=== PATIENT | female | born 1950 | race Caucasian/White ===

== ENCOUNTER 2018-01-29 14:42 | Emergency (ER) | payer MEDICARE, MEDICAID ==
[~2018-01-29] VITALS: Ht 170.2 cm; Wt 80.0 kg
[~2018-01-29 14:42] MED LIST: DIVA500T7 PO; ESOM40CA PO; FLUO20CA22 PO; FURO-150 PO; POTA20TA19 PO; ROSU5TAB PO
[2018-01-29 14:48] VITALS: BP 142/86
[2018-01-29 15:20] LABS: CLARITY,URINE CLEAR (Clear); COLOR,URINE YELLOW (Yellow); GLUCOSE, URINE NEGATIVE (Neg); KETONES,URINE NEGATIVE (Neg); LEUKOCYTE ESTERASE ,URINE NEGATIVE (Neg); NITRITES, URINE NEGATIVE (Neg); OCCULT BLOOD,URINE NEGATIVE (Neg); PH,URINE 6.5 (4.8-8.0); PROTEIN,URINE NEGATIVE (Neg); UROBILINOGEN,URINE 0.2 E.U/dL (0.2-1.0)
[2018-01-29 15:21] LABS: UA COLLECTION TYPE CLN CATCH MIDSTREAM
== END 2018-01-29 16:02 | disposition home or self-care (01) ==
LOC: ER 14:42
DX: R30.0 Dysuria (principal); E78.00 Pure hypercholesterolemia, unspecified; K21.9 Gastro-esophageal reflux disease without esophagitis; Z90.49 Acquired absence of other specified parts of digestive tract; Z79.899 Other long term (current) drug therapy; Z88.5 Allergy status to narcotic agent
CPT/HCPCS: 81003; 99285

== ENCOUNTER 2018-02-08 19:46 | Emergency (ER) | payer MEDICARE, MEDICAID ==
[~2018-02-08] VITALS: Ht 162.6 cm; Wt 84.0 kg
[2018-02-08 20:40] LABS: CLARITY,URINE CLEAR (Clear); COLOR,URINE YELLOW (Yellow); GLUCOSE, URINE NEGATIVE (Neg); KETONES,URINE NEGATIVE (Neg); LEUKOCYTE ESTERASE ,URINE NEGATIVE (Neg); NITRITES, URINE NEGATIVE (Neg); OCCULT BLOOD,URINE NEGATIVE (Neg); PROTEIN,URINE NEGATIVE (Neg); UROBILINOGEN,URINE 0.2 E.U/dL (0.2-1.0)
[2018-02-08 20:48] LABS: UA COLLECTION TYPE CLN CATCH MIDSTREAM
[2018-02-08 21:30] LABS: BASOPHILS % (AUTO) 0.3 % (0-1); EOSINOPHILS # (AUTO) 0.3 X10'3 (0-0.9); EOSINOPHILS % (AUTO) 4.3 % (0-6); HEMATOCRIT 39.8 % (35.0-45.0); HEMOGLOBIN 13.6 g/dl (12.0-16.0); LYMPHOCYTES # (AUTO) 1.2 X10'3 (1.1-4.8); LYMPHOCYTES % (AUTO) 17.9 % (21-51); MEAN CORPUSCULAR HEMOGLOBIN 32.5 PG (27.0-31.0); MEAN CORPUSCULAR HGB CONC 34.1 % (33.0-36.5); MEAN CORPUSCULAR VOLUME 95.3 FL (78-98); MEAN PLATELET VOLUME 10.2 FL (7.4-10.4); MONOCYTES # (AUTO) 0.4 X10'3 (0-0.9); MONOCYTES % (AUTO) 5.2 % (2-12); NEUTROPHILS % (AUTO) 72.3 % (42-75); PLATELET COUNT 92 X10'3 (140-440); RED BLOOD COUNT 4.17 X10'6 (4.20-5.60); RED CELL DISTRIBUTION WIDTH 13.6 % (11.5-14.5); WHITE BLOOD COUNT 6.9 X10'3 (4.5-11.0)
[2018-02-08 21:43] LABS: PROTHROMBIN TIME 10.5 SECONDS (9.0-12.0)
[2018-02-08 21:49] LABS: ALANINE AMINOTRANSFERASE 20 U/L (12-78); ALBUMIN 3.5 G/DL (3.4-5.0); ALBUMIN/GLOBULIN RATIO 1.1 (1.1-1.5); ALKALINE PHOSPHATASE 109 IU/L (46-116); ANION GAP 7 (8-16); ASPARTATE AMINO TRANSFERASE 11 U/L (10-37); BILIRUBIN,TOTAL 0.3 MG/DL (0.1-1.0); BLOOD UREA NITROGEN 21 MG/DL (7-18); BUN/CREATININE RATIO 20.4 (6.6-38.0); CALCIUM 10.2 MG/DL (8.5-10.1); CHLORIDE 104 MMOL/L (99-107); CREATININE 1.03 MG/DL (0.40-0.90); GLUCOSE 126 MG/DL (70-104); POTASSIUM 3.7 MMOL/L (3.5-5.1); SODIUM 141 MMOL/L (135-145); TOTAL CARBON DIOXIDE 29.7 MMOL/L (24-32); TOTAL PROTEIN 6.7 G/DL (6.4-8.2); eGFR 53 ML/MIN
[2018-02-08 22:10] VITALS: BP 106/64
== END 2018-02-08 22:19 | disposition home or self-care (01) ==
LOC: ER 19:47
DX: I77.6 Arteritis, unspecified (principal); E78.00 Pure hypercholesterolemia, unspecified; K21.9 Gastro-esophageal reflux disease without esophagitis; Z90.49 Acquired absence of other specified parts of digestive tract; Z90.710 Acquired absence of both cervix and uterus; Z88.8 Allergy status to other drugs, medicaments and biological substances; Z88.5 Allergy status to narcotic agent
CPT/HCPCS: 36415; 80053; 81003; 85025; 85610; 99284

== ENCOUNTER 2018-06-13 13:32 | Emergency (ER) | payer MEDICARE, MEDICAID ==
[~2018-06-13] VITALS: Ht 162.6 cm; Wt 81.3 kg
[~2018-06-13 13:32] MED LIST changes: +DIVA-76 PO; -DIVA500T7 PO
[2018-06-13] MEDS ORDERED: TETanus/Pertussis (Acell)/Diphther VAC/PF (Tdap-Adult) 0.5ml syringe IM ONE (14:10)
[2018-06-13] MEDS ORDERED: BUPIVAcaine/PF 2.5 mg/ml (0.25%) 30ml vial IJ ONE ×2 (14:10→16:25)
[2018-06-13] MEDS ORDERED: BUPIVAcaine/PF 2.5mg/ml (0.25%) 10ml vial IJ ONE ×3 (15:00→16:30)
[2018-06-13 15:03] LABS: BASOPHILS % (AUTO) 0.6 % (0-1); EOSINOPHILS # (AUTO) 0.2 X10'3 (0-0.9); EOSINOPHILS % (AUTO) 2.7 % (0-6); HEMATOCRIT 37.5 % (35.0-45.0); LYMPHOCYTES # (AUTO) 1.6 X10'3 (1.1-4.8); LYMPHOCYTES % (AUTO) 27.8 % (21-51); MEAN CORPUSCULAR HEMOGLOBIN 32.9 PG (27.0-31.0); MEAN CORPUSCULAR HGB CONC 34.7 % (33.0-36.5); MEAN CORPUSCULAR VOLUME 94.9 FL (78-98); MEAN PLATELET VOLUME 9.9 FL (7.4-10.4); MONOCYTES % (AUTO) 17.2 % (2-12); NEUTROPHILS % (AUTO) 51.7 % (42-75); PLATELET COUNT 95 X10'3 (140-440); RED BLOOD COUNT 3.95 X10'6 (4.20-5.60); RED CELL DISTRIBUTION WIDTH 13.1 % (11.5-14.5); WHITE BLOOD COUNT 5.7 X10'3 (4.5-11.0)
[2018-06-13 15:13] LABS: INR 1.1 INR; PARTIAL THROMBOPLASTIN TIME 26 SECONDS (22-32); PROTHROMBIN TIME 11.1 SECONDS (9.0-12.0)
[2018-06-13 15:17] LABS: LARGE PLATELETS FEW; PLATELET ESTIMATE DECREASED; TOTAL CELLS COUNTED 100
[2018-06-13 15:19] LABS: ALANINE AMINOTRANSFERASE 21 U/L (12-78); ALBUMIN 3.3 G/DL (3.4-5.0); ALBUMIN/GLOBULIN RATIO 1.2 (1.1-1.5); ALKALINE PHOSPHATASE 82 IU/L (46-116); ANION GAP 4 (8-16); ASPARTATE AMINO TRANSFERASE 21 U/L (10-37); BILIRUBIN,TOTAL 0.4 MG/DL (0.1-1.0); BLOOD UREA NITROGEN 13 MG/DL (7-18); BUN/CREATININE RATIO 12.4 (6.6-38.0); CHLORIDE 107 MMOL/L (99-107); CREATININE 1.05 MG/DL (0.40-0.90); GLUCOSE 107 MG/DL (70-104); POTASSIUM 3.9 MMOL/L (3.5-5.1); SODIUM 140 MMOL/L (135-145); TOTAL CARBON DIOXIDE 29.1 MMOL/L (24-32); TOTAL PROTEIN 6.1 G/DL (6.4-8.2); VALPROATE 70 UG/ML (50-100); eGFR 52 ML/MIN
[2018-06-13 15:21] LABS: ACETAMINOPHEN < 2.0 UG/ML (10-30)
[2018-06-13 15:53] LABS: CLARITY,URINE CLEAR (Clear); COLOR,URINE YELLOW (Yellow); GLUCOSE, URINE NEGATIVE (Neg); KETONES,URINE NEGATIVE (Neg); LEUKOCYTE ESTERASE ,URINE NEGATIVE (Neg); NITRITES, URINE NEGATIVE (Neg); OCCULT BLOOD,URINE NEGATIVE (Neg); PH,URINE 5.5 (4.8-8.0); PROTEIN,URINE NEGATIVE (Neg); UROBILINOGEN,URINE 0.2 E.U/dL (0.2-1.0)
[2018-06-13 15:58] LABS: UA COLLECTION TYPE VOIDED
[2018-06-13 16:02] VITALS: BP 131/75
[2018-06-13] MEDS ORDERED: cephalexin 500mg capsule PO ONE (18:05)
[2018-06-13] MEDS ORDERED: CEPH500C5 PO (18:08)
[2018-06-13] MEDS ORDERED: HYDR-569 PO (18:08)
== END 2018-06-13 18:44 | disposition home or self-care (01) ==
LOC: ER 13:32
DX: S41.111A Laceration without foreign body of right upper arm, initial encounter (principal); S09.90XA Unspecified injury of head, initial encounter; M54.9 Dorsalgia, unspecified; M54.2 Cervicalgia; K21.9 Gastro-esophageal reflux disease without esophagitis; E78.00 Pure hypercholesterolemia, unspecified; Z90.49 Acquired absence of other specified parts of digestive tract; Z90.710 Acquired absence of both cervix and uterus; Z88.5 Allergy status to narcotic agent; Z79.2 Long term (current) use of antibiotics; Z79.899 Other long term (current) drug therapy; W17.89XA Other fall from one level to another, initial encounter; Y93.H1 Activity, digging, shoveling and raking; Y92.89 Other specified places as the place of occurrence of the external cause; Y99.8 Other external cause status
CPT/HCPCS: 12005; 36415; 70450; 71045; 72125; 72128; 72131; 73030; 73060; 80053; 80164; 80329; 81003; 84484; 85025; 85610; 85730; 90471; 90715; 93005; 99285; A6446; A6449; J3490

== ENCOUNTER 2018-10-23 11:26 | Emergency (ER) | payer MEDICARE, MEDICAID ==
[~2018-10-23] VITALS: Ht 162.6 cm; Wt 84.0 kg
[~2018-10-23 11:26] MED LIST changes: +CEPH500C5 PO; +HYDR-4383 PO
--- NOTE | 2018-10-23 11:47 | NUR ---
Poison control contacted: recommends to check depakote level now and again in 4 hrs. Check ammonia level, EKG, cmp, cbc, etoh and tox screen. cafeteria monitor for 6 hrs. If QRS>120 given sodium bicarb bolus of 1-2meq. If QTC>470 then keep K+ >4, Ca+9 and Mg >2.
--- NOTE | 2018-10-23 12:03 | NUR ---
PATIENT RECEIVED IN BED 3.DAUGHTER AT BEDSIDE.
[2018-10-23 12:22] LABS: BASOPHILS % (AUTO) 0.3 % (0-1); EOSINOPHILS # (AUTO) 0.2 X10'3 (0-0.9); EOSINOPHILS % (AUTO) 3.6 % (0-6); HEMATOCRIT 41.5 % (35.0-45.0); HEMOGLOBIN 14.1 g/dl (12.0-16.0); LYMPHOCYTES # (AUTO) 1.5 X10'3 (1.1-4.8); MEAN CORPUSCULAR HEMOGLOBIN 32.2 PG (27.0-31.0); MEAN CORPUSCULAR VOLUME 94.7 FL (78-98); MEAN PLATELET VOLUME 9.1 FL (7.4-10.4); MONOCYTES # (AUTO) 0.9 X10'3 (0-0.9); MONOCYTES % (AUTO) 14.7 % (2-12); NEUTROPHILS # (AUTO) 3.4 X10'3 (1.8-7.7); NEUTROPHILS % (AUTO) 56.4 % (42-75); PLATELET COUNT 158 X10'3 (140-440); RED BLOOD COUNT 4.38 X10'6 (4.20-5.60); RED CELL DISTRIBUTION WIDTH 13.4 % (11.5-14.5); WHITE BLOOD COUNT 6.1 X10'3 (4.5-11.0)
[2018-10-23 12:39] LABS: URINE AMPHETAMINE SCREEN NEGATIVE (Neg); URINE BARBITUATE SCREEN NEGATIVE (Neg); URINE BENZODIAZEPINES SCREEN NEGATIVE (Neg); URINE CANNABINOID SCREEN NEGATIVE (Neg); URINE COCAINE SCREEN NEGATIVE (Neg); URINE METHADONE SCREEN NEGATIVE (Neg); URINE OPIATE SCREEN NEGATIVE (Neg); URINE PHENCYCLIDINE SCREEN NEGATIVE (Neg)
[2018-10-23 12:43] LABS: ALANINE AMINOTRANSFERASE 25 U/L (12-78); ALBUMIN 3.9 G/DL (3.4-5.0); ALBUMIN/GLOBULIN RATIO 1.1 (1.1-1.5); ALKALINE PHOSPHATASE 134 IU/L (46-116); ANION GAP 9 (8-16); ASPARTATE AMINO TRANSFERASE 22 U/L (10-37); BILIRUBIN,TOTAL 0.3 MG/DL (0.1-1.0); BLOOD UREA NITROGEN 11 MG/DL (7-18); BUN/CREATININE RATIO 12.5 (6.6-38.0); CHLORIDE 106 MMOL/L (99-107); CREATININE 0.88 MG/DL (0.40-0.90); ETHANOL < 0.010 GM/DL (0.0-0.010); GLUCOSE 98 MG/DL (70-104); POTASSIUM 4.1 MMOL/L (3.5-5.1); SODIUM 144 MMOL/L (135-145); TOTAL CARBON DIOXIDE 29.5 MMOL/L (24-32); TOTAL PROTEIN 7.5 G/DL (6.4-8.2); eGFR 64 ML/MIN
[2018-10-23 12:45] LABS: ACETAMINOPHEN < 2.0 UG/ML (10-30); VALPROATE 19 UG/ML (50-100)
[2018-10-23] MEDS ORDERED: HYDROcodone/acetaminophen 10/325mg tab PO ONE (14:20)
[2018-10-23] MEDS ORDERED: ondansetron 4mg rapidly disintigrating tab PO ONE (14:20)
--- NOTE | 2018-10-23 14:31 | NUR ---
POISON CONTROL CALLED TO FIND OUT THE PT'S LABS AND TO SEE WHAT THE PLANS ARE FOR HER LAB WORK. THEY NOTED HER LABS HAVENT GOTTEN WORSE.
--- NOTE | 2018-10-23 14:33 | NUR ---
WAITING ON TELEPSYCH EVAL.
--- NOTE | 2018-10-23 15:04 | NUR ---
AWAITING TELEPSYCH EVAL. MANAGER ASSEMBLY COMPUTER AT THE BEDSIDE. TELEPHONE CALL TO NURSING BEAN WEIGHER FOR INSTRUCTIONS ON HOW TO USE MANAGER ASSEMBLY PROGRAM. NURSE DIRECTED TO CALL ER REGISTRATION/RAP FOR FURTHER ASSISTANCE FROM STAFF THAT HAVE USED THIS DEVICE.
--- NOTE | 2018-10-23 15:07 | NUR ---
DAUGHTER AND SISTER AT THE BEDSIDE. PATIENT MEDICATED FOR PAIN IN RIGHT ARM, RATED 7/10.
--- NOTE | 2018-10-23 15:20 | NUR ---
LOGGED IN TO STEAM TUNNEL FEEDER COMPUTER AND CONTACTED OFFSET PLATE PREPARATION SUPERVISOR. SERVICE WILL BE AVAILABLE WHEN PSYCHIATRIST IS READY TO INTERVIEW PATIENT.
--- NOTE | 2018-10-23 16:09 | NUR ---
TELEPSYCH DOCTOR CALLED AND CONDITION REPORT GIVEN TO DOCTOR.
--- NOTE | 2018-10-23 16:20 | NUR ---
TELEPSYCH DOCTOR CALLED AND INTERVIEWED PATIENT VIA WITH USE FROM THE TELE-[employer] PROFESSIONAL. PATIENT BECAME EMOTIONAL AND WAS NOT ABLE TO GIVE FULL ACCOUNT OF EVENTS OF THE DAY. STATES SHE DOES NOT WANT TO KILL HERSELF BECAUSE "WHAT WOULD MY DAUGHTER DO WITHOUT ME". PATIENT VISIBLY UPSET AFTER INTERVIEW ENDED.
--- NOTE | 2018-10-23 17:14 | NUR ---
SISTER RETURNED TO VISIT AND RECENT MED LIST OBTAINED. SISTER INFORMED THAT TELEPSYCH CONSULT WAS CONDUCTED VIA PIANO CASE MAKER.
[2018-10-23] MEDS ORDERED: CETI10TA15 PO (17:37)
[2018-10-23] MEDS ORDERED: ROSU10TA PO (17:37)
[2018-10-23] MEDS ORDERED: ESZO3TAB66 PO (17:37)
[2018-10-23] MEDS ORDERED: DET2LAC PO (17:37)
[2018-10-23] MEDS ORDERED: FAMO20TA8 PO (17:37)
[2018-10-23] MEDS ORDERED: QUET200T3 PO (17:37)
[2018-10-23] MEDS ORDERED: LORA0.5T PO (17:37)
[2018-10-23] MEDS ORDERED: LEVO50TA PO (17:37)
--- NOTE | 2018-10-23 18:30 | NUR ---
Report rec'd, care assumed. Patient is sitting up eating dinner.
--- NOTE | 2018-10-23 19:23 | NUR ---
Laying in bed, awake, denies needs currently. Will continue to monitor.
--- NOTE | 2018-10-23 19:30 | NUR ---
Pt placed on bedpan. Pt voided well, no issues. Ailyn care given, pt placed on fresh dryflows.
--- NOTE | 2018-10-23 20:13 | NUR ---
Elopememnt band #31 placed on pt's left wrist.
[2018-10-23] MEDS ORDERED: LORazepam 0.5 MG tablet PO PRN (20:30)
--- NOTE | 2018-10-23 20:49 | NUR ---
Multiple medications are not avail, will endorse to am nurse to have family bring in home medications. Seroquel XR not avail, per pharmacy, therapeutic exchange would be seroquel 100mg BID. This was endorsed to ERP and orders rec'd.
[2018-10-23] MEDS ORDERED: ESZOPICLONE 2 MG PO PRN (20:50)
[2018-10-23] MEDS ORDERED: quetiapine 100mg tablet PO ONE (20:51)
[2018-10-23] MEDS ORDERED: QUETIAPINE 200 MG TAB.SR.24H PO SCH (21:00)
[2018-10-23] MEDS ORDERED: ROSUVASTATIN CALCIUM PO SCH (21:00)
[2018-10-23] MEDS ORDERED: atorvastatin 20mg tablet PO SCH (21:00)
--- NOTE | 2018-10-23 21:05 | NUR ---
Sitting in bed awake, took medications without difficulties, PIV discontinued to LEFT AC. Denies needs, will monitor.
--- NOTE | 2018-10-23 21:27 | NUR ---
Resting in bed, eyes closed, appearing to sleep without new concerns or issues noted. Will continue to monitor.
--- NOTE | 2018-10-23 22:10 | NUR ---
Resting in bed with eyes closed, appearing to sleep without new concerns or issues. Will continue to monitor.
--- NOTE | 2018-10-23 23:09 | NUR ---
Resting in bed with eyes closed, appearing to sleep without new concerns or issues. Will continue to monitor.
--- NOTE | 2018-10-23 23:33 | NUR ---
Requested snack, and one provided.
--- NOTE | 2018-10-24 00:44 | NUR ---
Resting in bed, eyes closed, appearing to sleep. No new issues or concerns noted. Will continue to monitor for changes.
--- NOTE | 2018-10-24 00:57 | NUR ---
Packet faxed to [facility].
--- NOTE | 2018-10-24 01:35 | NUR ---
Appearing to sleep, in bed with eyes closed, resp are even and unlabored. No new concerns or issues noted, will continue to monitor.
--- NOTE | 2018-10-24 02:19 | NUR ---
Appearing to sleep, in bed with eyes closed, resp are even and unlabored. No new concerns or issues noted, will continue to monitor.
--- NOTE | 2018-10-24 03:54 | NUR ---
PT AWAKENED AND MOTIONED THAT SHE WAS GOING TO GET SICK. PT WITH EMESIS 100 CC'S, CLEAR WATERY . DR. GRIFFITH UPDATED. ORDER FOR PRN MARCK.
[2018-10-24] MEDS: ondansetron 4mg rapidly disintigrating tab PO PRN ×2 (04:16→07:47)
--- NOTE | 2018-10-24 04:26 | NUR ---
Zofran administered per other RN, patient with additional emesis, yellow bile with food particles. Patient does indicate that she has been nauseated for awhile (more than a couple days). Endorsed this to ERP. Plan to continue zofran and monitor.
[2018-10-24] MEDS ORDERED: levoTHYROXINE 25mcg tablet PO SCH (07:00)
--- NOTE | 2018-10-24 07:02 | NUR ---
Report Received from Collins MOTT. Patient lying in bed awake, no distress noted.
[2018-10-24] MEDS ORDERED: quetiapine 100mg tablet PO SCH (08:00)
[2018-10-24] MEDS ORDERED: FLUoxetine 20mg capsule PO SCH (08:00)
[2018-10-24] MEDS ORDERED: cetirizine 10mg tablet PO SCH (08:00)
[2018-10-24] MEDS ORDERED: potassium Cl 20 mEq SR tablet PO SCH (08:00)
[2018-10-24] MEDS ORDERED: furosemide 20MG tablet PO SCH (08:00)
[2018-10-24] MEDS ORDERED: famotidine 20mg tablet PO SCH (08:00)
[2018-10-24] MEDS ORDERED: tolterodine 2mg SR capsule (24hr) PO SCH (08:00)
--- NOTE | 2018-10-24 08:05 | NUR ---
Patient had emesis, Zofran given for N/V. Patient lying in bed awake. Not eating breakfast at this time.
--- NOTE | 2018-10-24 08:53 | NUR ---
Patient's daughter called and said she would be here this afternoon to visit. Relayed information to patient.
[2018-10-24] MEDS ORDERED: metoclopramide 5 mg/ml inj IM ONE (09:30)
--- NOTE | 2018-10-24 09:54 | NUR ---
Pt. had another episode of vomitting. Notified Dr. Bell who ordered reglan IM, given lt. deltoid. Pt. instructed that we need to collect urine. Patient is deaf, but understands instructions via lip reading.
--- NOTE | 2018-10-24 09:59 | NUR ---
a.m. meds held due to N/V.
--- NOTE | 2018-10-24 11:56 | NUR ---
Patient has been sleeping in bed. No more S/S N/V. Patient does state that she is actively hallucinating, A/V/H. Pt. states that she is suicidal.
--- NOTE | 2018-10-24 12:23 | NUR ---
Administered a.m. medications. Patient immediately vomitted pills and watery-green fluid.
--- NOTE | 2018-10-24 12:38 | NUR ---
Patient's sister is here to visit. Patient states that she last had a BM 10/23. Has not voided today. Voided 3 x 10/23. Getting bedside commode for patient as she is fall risk.
[2018-10-24 13:05] LABS: CLARITY,URINE SLIGHTLY CLOUDY (Clear); COLOR,URINE YELLOW (Yellow); GLUCOSE, URINE NEGATIVE (Neg); KETONES,URINE 15 mg/dl (Neg); LEUKOCYTE ESTERASE ,URINE NEGATIVE (Neg); NITRITES, URINE NEGATIVE (Neg); OCCULT BLOOD,URINE NEGATIVE (Neg); PROTEIN,URINE NEGATIVE (Neg); UROBILINOGEN,URINE 0.2 E.U/dL (0.2-1.0)
[2018-10-24 13:07] LABS: UA COLLECTION TYPE CLN CATCH MIDSTREAM
[2018-10-24 13:12] LABS: AMORPHOUS PHOSPHATES 2+; BACTERIA,URINE NONE SEEN /HPF (Neg); MUCUS STRANDS NONE SEEN /LPF (Neg); RBC,URINE NONE SEEN /HPF (0-2); SQUAMOUS EPITHELIAL CELL,UR FEW /LPF (FEW); WBC,URINE 0-4 /HPF (0-4)
--- NOTE | 2018-10-24 14:00 | NUR ---
Patient sleeping, appears comfortable. Color is good. Patient is on clear liquids due to N/V.
--- NOTE | 2018-10-24 16:24 | NUR ---
Sister is here. Patient is being evaluated by [facility].
[2018-10-24 17:21] VITALS: BP 130/79
== END 2018-10-24 17:23 ==
LOC: ER 11:27
DX: T42.6X1A Poisoning by other antiepileptic and sedative-hypnotic drugs, accidental (unintentional), initial encounter (principal); F31.81 Bipolar II disorder; E78.00 Pure hypercholesterolemia, unspecified; K21.9 Gastro-esophageal reflux disease without esophagitis; F41.9 Anxiety disorder, unspecified; F20.9 Schizophrenia, unspecified; Z90.49 Acquired absence of other specified parts of digestive tract; Z90.710 Acquired absence of both cervix and uterus; Z79.899 Other long term (current) drug therapy; Z88.5 Allergy status to narcotic agent; Y92.89 Other specified places as the place of occurrence of the external cause
CPT/HCPCS: 36415; 80053; 80164; 80305; 80320; 80329; 81001; 82140; 85025; 93005; 96372; 99284; J2765; 99285

== ENCOUNTER 2018-11-09 12:56 | Emergency (ER) | payer MEDICARE, MEDICAID ==
[~2018-11-09] VITALS: Ht 162.6 cm; Wt 79.5 kg
[~2018-11-09 12:56] MED LIST changes: -CEPH500C5 PO; +CETI10TA15 PO; +DET2LAC PO; -DIVA-76 PO; -ESOM40CA PO; +ESZO3TAB66 PO; +FAMO20TA8 PO; -HYDR-4383 PO; +LEVO50TA PO; +LORA0.5T PO; +QUET200T3 PO; +ROSU10TA PO; -ROSU5TAB PO
[2018-11-09 13:09] VITALS: BP 147/81
--- NOTE | 2018-11-09 13:20 | NUR ---
PT IS WITH HER SISTER WAITING IN THE LOBBY.
[2018-11-09 14:57] LABS: BASOPHILS % (AUTO) 0.1 % (0-1); EOSINOPHILS # (AUTO) 0.2 X10'3 (0-0.9); EOSINOPHILS % (AUTO) 2.2 % (0-6); HEMATOCRIT 43.8 % (35.0-45.0); HEMOGLOBIN 14.8 g/dl (12.0-16.0); LYMPHOCYTES # (AUTO) 1.1 X10'3 (1.1-4.8); LYMPHOCYTES % (AUTO) 13.8 % (21-51); MEAN CORPUSCULAR HEMOGLOBIN 31.9 PG (27.0-31.0); MEAN CORPUSCULAR HGB CONC 33.8 g/dL (33.0-36.5); MEAN CORPUSCULAR VOLUME 94.2 FL (78-98); MEAN PLATELET VOLUME 9.2 FL (7.4-10.4); MONOCYTES # (AUTO) 0.8 X10'3 (0-0.9); MONOCYTES % (AUTO) 9.8 % (2-12); NEUTROPHILS # (AUTO) 5.7 X10'3 (1.8-7.7); NEUTROPHILS % (AUTO) 74.1 % (42-75); PLATELET COUNT 199 X10'3 (140-440); RED BLOOD COUNT 4.64 X10'6 (4.20-5.60); RED CELL DISTRIBUTION WIDTH 13.3 % (11.5-14.5); WHITE BLOOD COUNT 7.7 X10'3 (4.5-11.0)
[2018-11-09 15:14] LABS: ALANINE AMINOTRANSFERASE 24 U/L (12-78); ALBUMIN 4.1 G/DL (3.4-5.0); ALBUMIN/GLOBULIN RATIO 1.1 (1.1-1.5); ALKALINE PHOSPHATASE 150 IU/L (46-116); ANION GAP 10 (8-16); ASPARTATE AMINO TRANSFERASE 24 U/L (10-37); BILIRUBIN,TOTAL 0.6 MG/DL (0.1-1.0); BLOOD UREA NITROGEN 17 MG/DL (7-18); BUN/CREATININE RATIO 19.8 (6.6-38.0); CALCIUM 10.4 MG/DL (8.5-10.1); CHLORIDE 102 MMOL/L (99-107); CREATININE 0.86 MG/DL (0.40-0.90); GLUCOSE 116 MG/DL (70-104); POTASSIUM 3.6 MMOL/L (3.5-5.1); SODIUM 141 MMOL/L (135-145); TOTAL CARBON DIOXIDE 29.1 MMOL/L (24-32); TOTAL PROTEIN 7.8 G/DL (6.4-8.2); eGFR 66 ML/MIN
--- NOTE | 2018-11-09 15:15 | NUR ---
RECEIVED VO FROM MD ASHER MAY HOLD UA TEST THIS FAR.
[2018-11-09 15:24] LABS: ETHANOL < 0.010 GM/DL (0.0-0.010)
[2018-11-09] MEDS ORDERED: LURA40TA3 PO (16:31)
--- NOTE | 2018-11-09 16:54 | NUR ---
PATIENT FOUND NOT TO BE SUICIDAL. MAIN COMPLAIN HAS BEEN INSOMNIA, GIVEN RX, DISCHARGED HOME.
== END 2018-11-09 16:56 | disposition home or self-care (01) ==
LOC: ER 12:57
DX: F32.9 Major depressive disorder, single episode, unspecified (principal); R45.851 Suicidal ideations; E78.00 Pure hypercholesterolemia, unspecified; K21.9 Gastro-esophageal reflux disease without esophagitis; F41.9 Anxiety disorder, unspecified; F20.9 Schizophrenia, unspecified; H91.3 Deaf nonspeaking, not elsewhere classified; Z90.49 Acquired absence of other specified parts of digestive tract; Z90.710 Acquired absence of both cervix and uterus; Z88.5 Allergy status to narcotic agent; Z79.899 Other long term (current) drug therapy
CPT/HCPCS: 36415; 80053; 80320; 84443; 85025; 99284

== ENCOUNTER 2018-11-11 15:52 | Emergency (ER) | payer MEDICARE, MEDICAID ==
[~2018-11-11] VITALS: Ht 162.6 cm; Wt 79.5 kg
[~2018-11-11 15:52] MED LIST changes: +LURA40TA3 PO
[2018-11-11 16:40] VITALS: BP 122/84
[2018-11-11 17:32] LABS: BASOPHILS # (AUTO) 0.1 X10'3 (0-0.2); BASOPHILS % (AUTO) 1.9 % (0-1); EOSINOPHILS # (AUTO) 0.2 X10'3 (0-0.9); EOSINOPHILS % (AUTO) 3.1 % (0-6); HEMATOCRIT 46.5 % (35.0-45.0); HEMOGLOBIN 15.1 g/dl (12.0-16.0); LYMPHOCYTES # (AUTO) 1.7 X10'3 (1.1-4.8); LYMPHOCYTES % (AUTO) 22.4 % (21-51); MEAN CORPUSCULAR HEMOGLOBIN 30.8 PG (27.0-31.0); MEAN CORPUSCULAR HGB CONC 32.5 g/dL (33.0-36.5); MEAN CORPUSCULAR VOLUME 94.9 FL (78-98); MEAN PLATELET VOLUME 10.4 FL (7.4-10.4); MONOCYTES # (AUTO) 0.9 X10'3 (0-0.9); NEUTROPHILS # (AUTO) 4.8 X10'3 (1.8-7.7); NEUTROPHILS % (AUTO) 61.6 % (42-75); PLATELET COUNT 185 X10'3 (140-440); RED CELL DISTRIBUTION WIDTH 12.4 % (11.5-14.5); WHITE BLOOD COUNT 7.7 X10'3 (4.5-11.0)
[2018-11-11 17:41] LABS: ALANINE AMINOTRANSFERASE 25 U/L (12-78); ALBUMIN/GLOBULIN RATIO 1.1 (1.1-1.5); ALKALINE PHOSPHATASE 153 IU/L (46-116); ANION GAP 8 (8-16); ASPARTATE AMINO TRANSFERASE 22 U/L (10-37); BILIRUBIN,TOTAL 0.5 MG/DL (0.1-1.0); BLOOD UREA NITROGEN 21 MG/DL (7-18); CALCIUM 10.5 MG/DL (8.5-10.1); CHLORIDE 102 MMOL/L (99-107); GLUCOSE 129 MG/DL (70-104); POTASSIUM 3.7 MMOL/L (3.5-5.1); SODIUM 141 MMOL/L (135-145); TOTAL CARBON DIOXIDE 30.6 MMOL/L (24-32); TOTAL PROTEIN 7.6 G/DL (6.4-8.2); eGFR 55 ML/MIN
[2018-11-11 21:02] LABS: CLARITY,URINE CLEAR (Clear); COLOR,URINE YELLOW (Yellow); GLUCOSE, URINE NEGATIVE (Neg); KETONES,URINE NEGATIVE (Neg); LEUKOCYTE ESTERASE ,URINE SMALL (Neg); NITRITES, URINE NEGATIVE (Neg); OCCULT BLOOD,URINE NEGATIVE (Neg); PH,URINE 5.5 (4.8-8.0); PROTEIN,URINE NEGATIVE (Neg); UROBILINOGEN,URINE 0.2 E.U/dL (0.2-1.0)
[2018-11-11 21:09] LABS: UA COLLECTION TYPE CLN CATCH MIDSTREAM
[2018-11-11 21:25] LABS: MUCUS STRANDS MODERATE /LPF (Neg); RBC,URINE 0-2 /HPF (0-2); SQUAMOUS EPITHELIAL CELL,UR MODERATE /LPF (FEW)
[2018-11-11 21:26] LABS: BACTERIA,URINE FEW /HPF (Neg)
[2018-11-11] MEDS ORDERED: cephalexin 250mg capsule PO ONE (22:15)
[2018-11-11] MEDS ORDERED: CEPH500C5 PO (22:18)
[2018-11-11] MEDS ORDERED: piperacillin/tazo 3.375gm/50ml 50 ML IV ONE (22:40)
== END 2018-11-11 22:54 | disposition home or self-care (01) ==
LOC: ER 15:53
DX: F03.90 Unspecified dementia, unspecified severity, without behavioral disturbance, psychotic disturbance, mood disturbance, and anxiety (principal); K21.9 Gastro-esophageal reflux disease without esophagitis; E78.00 Pure hypercholesterolemia, unspecified; F41.9 Anxiety disorder, unspecified; F20.9 Schizophrenia, unspecified; Z87.11 Personal history of peptic ulcer disease; Z90.49 Acquired absence of other specified parts of digestive tract; Z90.710 Acquired absence of both cervix and uterus; Z88.5 Allergy status to narcotic agent; Z79.899 Other long term (current) drug therapy
CPT/HCPCS: 36415; 80053; 81001; 85025; 87088; 99284

== ENCOUNTER 2018-12-04 23:02 | Emergency (ER) | payer MEDICARE, MEDICAID ==
[~2018-12-04] VITALS: Ht 165.1 cm; Wt 77.3 kg
[~2018-12-04 23:02] MED LIST changes: +CEPH500C5 PO; -QUET200T3 PO; +QUET200T5 PO; -ROSU10TA PO; +ROSU10TA2 PO
[2018-12-04 23:39] LABS: URINE HCG NEGATIVE (NEG)
[2018-12-04] MEDS ORDERED: LORA0.5T PO (23:46)
[2018-12-04 23:57] LABS: URINE AMPHETAMINE SCREEN NEGATIVE (Neg); URINE BARBITUATE SCREEN NEGATIVE (Neg); URINE BENZODIAZEPINES SCREEN NEGATIVE (Neg); URINE CANNABINOID SCREEN NEGATIVE (Neg); URINE COCAINE SCREEN NEGATIVE (Neg); URINE METHADONE SCREEN NEGATIVE (Neg); URINE OPIATE SCREEN NEGATIVE (Neg); URINE PHENCYCLIDINE SCREEN NEGATIVE (Neg)
[2018-12-04] MEDS: ziprasidone 20mg capsule PO SCH (23:59)
[2018-12-05 00:07] LABS: BASOPHILS % (AUTO) 0.8 % (0-1); EOSINOPHILS # (AUTO) 0.2 X10'3 (0-0.9); EOSINOPHILS % (AUTO) 3.8 % (0-6); HEMATOCRIT 42.8 % (35.0-45.0); HEMOGLOBIN 14.1 g/dl (12.0-16.0); LYMPHOCYTES # (AUTO) 1.6 X10'3 (1.1-4.8); LYMPHOCYTES % (AUTO) 27.4 % (21-51); MEAN CORPUSCULAR HEMOGLOBIN 30.9 PG (27.0-31.0); MEAN CORPUSCULAR HGB CONC 32.9 g/dL (33.0-36.5); MEAN CORPUSCULAR VOLUME 93.9 FL (78-98); MEAN PLATELET VOLUME 9.9 FL (7.4-10.4); MONOCYTES # (AUTO) 0.8 X10'3 (0-0.9); MONOCYTES % (AUTO) 13.6 % (2-12); NEUTROPHILS # (AUTO) 3.2 X10'3 (1.8-7.7); NEUTROPHILS % (AUTO) 54.4 % (42-75); PLATELET COUNT 158 X10'3 (140-440); RED BLOOD COUNT 4.55 X10'6 (4.20-5.60); RED CELL DISTRIBUTION WIDTH 12.8 % (11.5-14.5)
[2018-12-05 00:12] LABS: ALANINE AMINOTRANSFERASE 19 U/L (12-78); ALBUMIN 3.7 G/DL (3.4-5.0); ALBUMIN/GLOBULIN RATIO 1.1 (1.1-1.5); ALKALINE PHOSPHATASE 148 IU/L (46-116); ANION GAP 7 (8-16); ASPARTATE AMINO TRANSFERASE 17 U/L (10-37); BILIRUBIN,TOTAL 0.3 MG/DL (0.1-1.0); BLOOD UREA NITROGEN 17 MG/DL (7-18); BUN/CREATININE RATIO 16.7 (6.6-38.0); CALCIUM 10.3 MG/DL (8.5-10.1); CHLORIDE 106 MMOL/L (99-107); CREATININE 1.02 MG/DL (0.40-0.90); ETHANOL < 0.010 GM/DL (0.0-0.010); GLUCOSE 110 MG/DL (70-104); POTASSIUM 3.7 MMOL/L (3.5-5.1); SODIUM 142 MMOL/L (135-145); TOTAL CARBON DIOXIDE 29.4 MMOL/L (24-32); TOTAL PROTEIN 7.1 G/DL (6.4-8.2); eGFR 54 ML/MIN
--- NOTE | 2018-12-05 00:22 | NUR ---
Pt brought straight back to overflow, brought in by [facility]. Pt was assisted into green scrubs by her sister. Pt is deaf and communictes by ASL. Sister at the bedside translating. Dr. Riverfs back to see pt. Urine collected. Labs drawn by RN. Med rec completed. Pt given Geodone. Pt sister stayed until pt fell asleep then left stating she would be back in the morning.
[2018-12-05 00:32] LABS: CLARITY,URINE CLEAR (Clear); COLOR,URINE YELLOW (Yellow); GLUCOSE, URINE NEGATIVE (Neg); KETONES,URINE NEGATIVE (Neg); LEUKOCYTE ESTERASE ,URINE TRACE (Neg); NITRITES, URINE NEGATIVE (Neg); OCCULT BLOOD,URINE SMALL (Neg); PH,URINE 6.5 (4.8-8.0); PROTEIN,URINE NEGATIVE (Neg); UROBILINOGEN,URINE 0.2 E.U/dL (0.2-1.0)
[2018-12-05 00:38] LABS: UA COLLECTION TYPE CLN CATCH MIDSTREAM
[2018-12-05 00:39] LABS: BACTERIA,URINE FEW /HPF (Neg); RBC,URINE 0-2 /HPF (0-2); SQUAMOUS EPITHELIAL CELL,UR FEW /LPF (FEW); WBC,URINE 0-4 /HPF (0-4)
--- NOTE | 2018-12-05 03:09 | NUR ---
Packet faxed to [facility]. Office closed, therefore unable to confirm receipt of packet.
--- NOTE | 2018-12-05 03:29 | NUR ---
Pt sleeping quietly in his bed. Respirations even and unlabored. No distress noted
[2018-12-05] MEDS: potassium Cl 20 mEq SR tablet PO SCH (09:33)
[2018-12-05] MEDS: tolterodine 2mg SR capsule (24hr) PO SCH (09:33)
[2018-12-05] MEDS: LORazepam 0.5 MG tablet PO SCH ×2 (09:33→20:36)
[2018-12-05] MEDS: famotidine 20mg tablet PO SCH (09:33)
[2018-12-05] MEDS: levoTHYROXINE 25mcg tablet PO SCH (09:33)
[2018-12-05] MEDS: quetiapine 100mg tablet PO SCH ×2 (09:34→20:36)
[2018-12-05] MEDS: furosemide 20MG tablet PO SCH (09:34)
[2018-12-05] MEDS: cetirizine 10mg tablet PO SCH (09:34)
[2018-12-05] MEDS: FLUoxetine 20mg capsule PO SCH (09:34)
--- NOTE | 2018-12-05 19:03 | NUR ---
Pt's sister bedside. Sister reports marked improvement in pt's baseline AEB pt eating once again and engaging socially with her. Pt is deaf, making interaction with non signing individuals challenging. Pt AOX3; no apparent distress at this time.
[2018-12-05] MEDS: lurasidone 20mg tablet PO SCH (20:37)
[2018-12-05] MEDS: atorvastatin 10mg tablet PO SCH (20:37)
--- NOTE | 2018-12-05 20:53 | NUR ---
Pt expressed in writing remorse over her suicidal behavior, writing "I am sorry," accompanied by hand signals her action about removing her heart. Reassurance provided.
[2018-12-05] MEDS ORDERED: zolpidem 5mg tablet PO PRN (21:00)
--- NOTE | 2018-12-05 23:15 | NUR ---
Pt asleep on back. RR 14, even and unlabored. No apparent distress at this time.
[2018-12-05] MEDS: ziprasidone 20mg capsule PO SCH (23:25)
--- NOTE | 2018-12-06 00:38 | NUR ---
Pt resting quietly in position of comfort. RR 14, even and unlabored. No apparent distress at this time.
--- NOTE | 2018-12-06 02:12 | NUR ---
resting quietly on back; rr 14, even and unlabored. No apparent distress @ this time.
--- NOTE | 2018-12-06 04:11 | NUR ---
Pt appears to be dozing. RR 14, even and unlabored. Warm blanket provided. No apparent distress noted.
[2018-12-06] MEDS: LORazepam 0.5 MG tablet PO SCH ×2 (07:54→20:35)
[2018-12-06] MEDS: potassium Cl 20 mEq SR tablet PO SCH (07:54)
[2018-12-06] MEDS: tolterodine 2mg SR capsule (24hr) PO SCH (07:54)
[2018-12-06] MEDS: furosemide 20MG tablet PO SCH (07:54)
[2018-12-06] MEDS: FLUoxetine 20mg capsule PO SCH (07:54)
[2018-12-06] MEDS: cetirizine 10mg tablet PO SCH (07:54)
[2018-12-06] MEDS: famotidine 20mg tablet PO SCH (07:54)
[2018-12-06] MEDS: quetiapine 100mg tablet PO SCH ×2 (07:55→20:35)
[2018-12-06] MEDS: levoTHYROXINE 25mcg tablet PO SCH (07:55)
--- NOTE | 2018-12-06 08:30 | NUR ---
Pt up at edge of bed for breakfast, denies and
--- NOTE | 2018-12-06 20:30 | NUR ---
patients daughter called and wanted to know what she should do about helping her mom tesha the aunt just thinks that she can go home and be fine. I told the daughter to touch bases with [facility] to see what there plan is.
[2018-12-06] MEDS: atorvastatin 10mg tablet PO SCH (20:35)
[2018-12-06] MEDS: lurasidone 20mg tablet PO SCH (20:35)
--- NOTE | 2018-12-06 23:44 | NUR ---
patient up to restroom independently
--- NOTE | 2018-12-07 05:30 | NUR ---
pt resting comfortably on left hip. will continue to monitor.
--- NOTE | 2018-12-07 06:30 | NUR ---
Asleep upon change of shift observation. Color and breathing within normal limits. Undisturbed at this time.
--- NOTE | 2018-12-07 08:30 | NUR ---
Awakened for breakfast and AM medications. Pleasant upon approach. Mention of immediately brought patient to tears. Patient picked at her food. Medications administered as ordered.
[2018-12-07] MEDS: furosemide 20MG tablet PO SCH (09:13)
[2018-12-07] MEDS: levoTHYROXINE 25mcg tablet PO SCH (09:13)
[2018-12-07] MEDS: FLUoxetine 20mg capsule PO SCH (09:13)
[2018-12-07] MEDS: potassium Cl 20 mEq SR tablet PO SCH (09:14)
[2018-12-07] MEDS: cetirizine 10mg tablet PO SCH (09:14)
[2018-12-07] MEDS: LORazepam 0.5 MG tablet PO SCH ×2 (09:14→20:48)
[2018-12-07] MEDS: quetiapine 100mg tablet PO SCH ×2 (09:14→20:48)
[2018-12-07] MEDS: famotidine 20mg tablet PO SCH (09:14)
[2018-12-07] MEDS: tolterodine 2mg SR capsule (24hr) PO SCH (09:21)
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
--- NOTE | 2018-12-07 14:13 | NUR ---
Daughter at bedside conversing with mom in sign language. Daughter states "I'm pursuing paperwork with an harvest crew supervisor to get rights over my mom to get her into a care home." Daughter asking if mother was going home. States "My mother got out of bed when she saw me and said she gets to go home."
--- NOTE | 2018-12-07 14:30 | NUR ---
Daughter of patient and patient's sister sitting at bedside. Daughter is upset and crying because she believes she was not consulted about "my mother's wishes." Aunt reassured daughter that "we want you to be a big part of your mother's life." Patient comforted daughter. Daughter continues to cry.
--- NOTE | 2018-12-07 16:57 | NUR ---
Patient awake at this time, reading a book. States she feels "good." Denies suicidal ideation or intent at this time.
[2018-12-07] MEDS: lurasidone 20mg tablet PO SCH (20:48)
[2018-12-07] MEDS: atorvastatin 10mg tablet PO SCH (20:48)
--- NOTE | 2018-12-07 20:58 | NUR ---
pt given scheduled medication and a cup of ice water, pt tolerated well.
--- NOTE | 2018-12-08 05:25 | NUR ---
pt asleep, resp even and unlabored, sitter in line of sight.
--- NOTE | 2018-12-08 06:30 | NUR ---
Asleep upon change of shift observation. Breathing even and unlabored. In line of sight of clinical staff.
[2018-12-08] MEDS: levoTHYROXINE 25mcg tablet PO SCH (08:27)
[2018-12-08] MEDS: famotidine 20mg tablet PO SCH (08:28)
[2018-12-08] MEDS: quetiapine 100mg tablet PO SCH (08:28)
[2018-12-08] MEDS: FLUoxetine 20mg capsule PO SCH (08:28)
[2018-12-08] MEDS: furosemide 20MG tablet PO SCH (08:28)
[2018-12-08] MEDS: potassium Cl 20 mEq SR tablet PO SCH (08:28)
[2018-12-08] MEDS: LORazepam 0.5 MG tablet PO SCH (08:28)
[2018-12-08] MEDS: cetirizine 10mg tablet PO SCH (08:28)
[2018-12-08] MEDS: tolterodine 2mg SR capsule (24hr) PO SCH (08:29)
--- NOTE | 2018-12-08 08:30 | NUR ---
Awakened for breakfast and AM medications. Refused breakfast. All medications taken as ordered.
--- NOTE | 2018-12-08 10:30 | NUR ---
Patient accepted for admission at [facility]. Patient informed. Clapped and said yes.
--- NOTE | 2018-12-08 10:53 | NUR ---
Patient discharged from ER. Transported to [facility] via wheelchair with all her personal possessions.
[2018-12-08 10:55] VITALS: BP 108/72
== END 2018-12-08 10:57 | disposition home or self-care (01) ==
LOC: ER 23:02
DX: R45.851 Suicidal ideations (principal); R44.0 Auditory hallucinations; E78.00 Pure hypercholesterolemia, unspecified; K21.9 Gastro-esophageal reflux disease without esophagitis; F41.9 Anxiety disorder, unspecified; F32.9 Major depressive disorder, single episode, unspecified; Z90.710 Acquired absence of both cervix and uterus; Z90.49 Acquired absence of other specified parts of digestive tract; Z88.5 Allergy status to narcotic agent; Z87.11 Personal history of peptic ulcer disease; Z79.899 Other long term (current) drug therapy
CPT/HCPCS: 36415; 80053; 80305; 80320; 81001; 81025; 85025; 87088; 99285

== ENCOUNTER 2018-12-08 08:24 | Inpatient (IN) | payer MEDICARE, MEDICAID | END 2018-12-15 13:32 | disposition home or self-care (01) | LOC: ADULT MH 08:24 | DX: F20.9 Schizophrenia, unspecified (principal); F33.9 Major depressive disorder, recurrent, unspecified ==

== ENCOUNTER 2019-10-24 19:26 | Emergency (ER) | payer MEDICARE, MEDICAID ==
[~2019-10-24] VITALS: Ht 165.1 cm; Wt 81.0 kg
[~2019-10-24 19:26] MED LIST changes: -CEPH500C5 PO; -ESZO3TAB66 PO; -FLUO20CA22 PO; -LORA0.5T PO; +LURA20TA PO; -LURA40TA3 PO; -QUET200T5 PO; +TRAZ-256 PO; +VENL75CA61 PO
--- NOTE | 2019-10-24 19:45 | NUR ---
FÁTIMA ALLEN IN ROOM WITH PT COMMUNICATING WITH BOARD SETTER.
[2019-10-24] MEDS ORDERED: ketorolac tromethamine 15mg/ml inj. IV ONE (20:00)
[2019-10-24] MEDS ORDERED: IBUP-1984 PO (21:14)
[2019-10-24 21:56] VITALS: BP 133/56
== END 2019-10-24 21:59 | disposition home or self-care (01) ==
LOC: ER 19:27
DX: M54.2 Cervicalgia (principal); M54.9 Dorsalgia, unspecified; R07.81 Pleurodynia; R51 Headache; M25.522 Pain in left elbow; E78.00 Pure hypercholesterolemia, unspecified; K21.9 Gastro-esophageal reflux disease without esophagitis; F41.9 Anxiety disorder, unspecified; F31.9 Bipolar disorder, unspecified; F20.9 Schizophrenia, unspecified; Z90.49 Acquired absence of other specified parts of digestive tract; Z90.710 Acquired absence of both cervix and uterus; Z98.890 Other specified postprocedural states; Z88.5 Allergy status to narcotic agent; Z79.899 Other long term (current) drug therapy; W01.0XXA Fall on same level from slipping, tripping and stumbling without subsequent striking against object, initial encounter; Y93.89 Activity, other specified; Y92.89 Other specified places as the place of occurrence of the external cause; Y99.8 Other external cause status
CPT/HCPCS: 72125; 72128; 73080; 73502; 96374; 99284; J1885

== ENCOUNTER 2019-11-21 17:14 | Emergency (ER) | payer MEDICARE, MEDICAID ==
[~2019-11-21] VITALS: Ht 165.1 cm; Wt 77.3 kg
[2019-11-21] MEDS ORDERED: normal saline 1000ML IV soln IVB ONE (17:50)
[2019-11-21 18:30] LABS: BASOPHILS # (AUTO) 0.1 X10'3 (0-0.2); BASOPHILS % (AUTO) 1.2 % (0-1); EOSINOPHILS # (AUTO) 0.3 X10'3 (0-0.9); EOSINOPHILS % (AUTO) 4.7 % (0-6); HEMATOCRIT 41.5 % (35.0-45.0); HEMOGLOBIN 14.3 g/dl (12.0-16.0); LYMPHOCYTES # (AUTO) 1.4 X10'3 (1.1-4.8); LYMPHOCYTES % (AUTO) 22.9 % (21-51); MEAN CORPUSCULAR HGB CONC 34.4 g/dL (33.0-36.5); MEAN CORPUSCULAR VOLUME 93.1 FL (78-98); MEAN PLATELET VOLUME 10.1 FL (7.4-10.4); MONOCYTES % (AUTO) 15.9 % (2-12); NEUTROPHILS # (AUTO) 3.5 X10'3 (1.8-7.7); NEUTROPHILS % (AUTO) 55.3 % (42-75); PLATELET COUNT 111 X10'3 (140-440); RED BLOOD COUNT 4.46 X10'6 (4.20-5.60); RED CELL DISTRIBUTION WIDTH 13.7 % (11.5-14.5); WHITE BLOOD COUNT 6.3 X10'3 (4.5-11.0)
[2019-11-21 18:38] LABS: ALANINE AMINOTRANSFERASE 21 U/L (12-78); ALBUMIN 3.6 G/DL (3.4-5.0); ALBUMIN/GLOBULIN RATIO 1.1 (1.1-1.5); ALKALINE PHOSPHATASE 106 IU/L (46-116); ANION GAP 5 (8-16); ASPARTATE AMINO TRANSFERASE 18 U/L (10-37); BILIRUBIN,TOTAL 0.4 MG/DL (0.1-1.0); BLOOD UREA NITROGEN 20 MG/DL (7-18); BUN/CREATININE RATIO 16.4 (6.6-38.0); CALCIUM 10.4 MG/DL (8.5-10.1); CHLORIDE 107 MMOL/L (99-107); CREATININE 1.22 MG/DL (0.40-0.90); GLUCOSE 108 MG/DL (70-104); POTASSIUM 4.2 MMOL/L (3.5-5.1); SODIUM 144 MMOL/L (135-145); TOTAL PROTEIN 6.8 G/DL (6.4-8.2); eGFR 44 ML/MIN
[2019-11-21 18:47] LABS: LIPASE 63 U/L (73-393); TROPONIN I < 0.04 NG/ML (0.0-0.05)
[2019-11-21 18:53] LABS: ETHANOL < 0.010 GM/DL (0.0-0.010)
--- NOTE | 2019-11-21 19:34 | NUR ---
Received report from Ruthie MOTT and assumed pt care.
--- NOTE | 2019-11-21 20:00 | NUR ---
Pt resting comfortably, respirations normal, no s/s of distress.
[2019-11-21 20:12] LABS: TOTAL CELLS COUNTED 100
[2019-11-21 20:13] LABS: PLATELET ESTIMATE DECREASED
[2019-11-21] MEDS: quetiapine 100mg tablet PO SCH ×2 (20:15→21:00)
[2019-11-21 20:25] LABS: CLARITY,URINE CLEAR (Clear); COLOR,URINE YELLOW (Yellow); GLUCOSE, URINE NEGATIVE (Neg); KETONES,URINE NEGATIVE (Neg); LEUKOCYTE ESTERASE ,URINE SMALL (Neg); NITRITES, URINE NEGATIVE (Neg); OCCULT BLOOD,URINE NEGATIVE (Neg); PROTEIN,URINE NEGATIVE (Neg); UROBILINOGEN,URINE 0.2 E.U/dL (0.2-1.0)
[2019-11-21 20:31] LABS: URINE AMPHETAMINE SCREEN NEGATIVE (Neg); URINE BARBITUATE SCREEN NEGATIVE (Neg); URINE BENZODIAZEPINES SCREEN NEGATIVE (Neg); URINE CANNABINOID SCREEN NEGATIVE (Neg); URINE COCAINE SCREEN NEGATIVE (Neg); URINE METHADONE SCREEN NEGATIVE (Neg); URINE OPIATE SCREEN NEGATIVE (Neg); URINE PHENCYCLIDINE SCREEN NEGATIVE (Neg)
[2019-11-21] MEDS ORDERED: LORA-269 PO (20:32)
[2019-11-21] MEDS ORDERED: TRAZ-256 PO (20:34)
[2019-11-21 20:35] LABS: UA COLLECTION TYPE VOIDED
[2019-11-21] MEDS ORDERED: OLAN5TAB5 PO (20:36)
[2019-11-21 20:38] LABS: BACTERIA,URINE NONE SEEN /HPF (Neg); RBC,URINE 0-2 /HPF (0-2); RENAL CELLS, URINE FEW /HPF; SQUAMOUS EPITHELIAL CELL,UR FEW /LPF (FEW); WBC,URINE 0-4 /HPF (0-4)
[2019-11-21] MEDS ORDERED: DIVA-81 PO (20:39)
[2019-11-21] MEDS ORDERED: DIVA500T9 PO (20:42)
--- NOTE | 2019-11-21 21:00 | NUR ---
Pt resting comfortably, respirations normal, no s/s of distress.
--- NOTE | 2019-11-21 22:00 | NUR ---
Pt resting comfortably, respirations normal, no s/s of distress.
--- NOTE | 2019-11-21 23:00 | NUR ---
Pt resting comfortably, respirations normal, no s/s of distress.
--- NOTE | 2019-11-22 | NUR ---
Pt resting comfortably, respirations normal, no s/s of distress.
--- NOTE | 2019-11-22 01:00 | NUR ---
Pt resting comfortably, respirations normal, no s/s of distress.
--- NOTE | 2019-11-22 02:00 | NUR ---
Pt resting comfortably, respirations normal, no s/s of distress.
--- NOTE | 2019-11-22 02:00 | NUR ---
Pt resting comfortably, respirations normal, no s/s of distress.
--- NOTE | 2019-11-22 03:00 | NUR ---
Pt resting comfortably, respirations normal, no s/s of distress.
--- NOTE | 2019-11-22 04:04 | NUR ---
Pt brought over to er overflow.
--- NOTE | 2019-11-22 05:00 | NUR ---
PT UP TO RESTROOM WITH MINIMAL ASSISTANCE.
[2019-11-22] MEDS ORDERED: non-formulary drug (Trazodone HCl 1 TAB) PO PRN (05:35)
--- NOTE | 2019-11-22 06:29 | NUR ---
PACKET HAS BEEN FAXED TO [facility]
--- NOTE | 2019-11-22 06:32 | NUR ---
pt resting quietly in bed.
--- NOTE | 2019-11-22 08:12 | NUR ---
sitting up in bed eating breakfast. calm and cooperative.
[2019-11-22] MEDS: furosemide 20MG tablet PO SCH (09:01)
[2019-11-22] MEDS: tolterodine 2mg SR capsule (24hr) PO SCH (09:01)
[2019-11-22] MEDS: potassium Cl 20 mEq SR tablet PO SCH (09:01)
[2019-11-22] MEDS: venlafaxine XR 75mg capsule (Q24H) PO SCH (09:01)
[2019-11-22] MEDS: LORazepam 1 MG tablet PO SCH ×2 (09:01→20:13)
[2019-11-22] MEDS: levoTHYROXINE 25mcg tablet PO SCH (09:01)
[2019-11-22] MEDS: divalproex sod 250mg ER (24-hour) tablet PO SCH ×2 (09:01→20:13)
[2019-11-22] MEDS: famotidine 20mg tablet PO SCH (09:01)
[2019-11-22] MEDS: cetirizine 10mg tablet PO SCH (09:02)
--- NOTE | 2019-11-22 09:18 | NUR ---
pt took all AM meds w/no complaints. RN wrote on a sheet of paper the list of her AM meds and what each med is for for pt to read since she is hearing impared. pt shook her head in agreement after reading the list. now up to restroom. she ambulates independently, steady on her feet. pt is cooperative and appears to be calm.
--- NOTE | 2019-11-22 10:50 | NUR ---
resting quietly in bed. will occationally get up to use the restroom, steady on her feet.
--- NOTE | 2019-11-22 10:56 | NUR ---
Leukocytes noted in pts urine, WBC's WNL, VS WNL. Pts had odd behavior before admission. Dr. Rachel aware of lab results and pts mental status. MD does not believe pt has a UTI at this time.
--- NOTE | 2019-11-22 11:57 | NUR ---
PT'S SISTER AT BEDSIDE, INTERPRETING FOR [facility],
--- NOTE | 2019-11-22 13:44 | NUR ---
pts sister was at bedside for quite some time visiting with pt. tentative plan to have psych doctor evaluate pt for dementia, if results are inconclusive pt will stay on a 5150. more than likely pt will not return to her former residence. pt is calm and resting in bed at this time.
--- NOTE | 2019-11-22 15:02 | NUR ---
resting quietly in bed.
--- NOTE | 2019-11-22 16:32 | NUR ---
resting quietly in bed.
[2019-11-22] MEDS ORDERED: ibuprofen 200mg tablet PO PRN (17:35)
--- NOTE | 2019-11-22 17:36 | NUR ---
pt c/o "all over pain", moaning in bed. Dr. Morel aware and ordered for Ibuprofen 600mg.
[2019-11-22] MEDS ORDERED: lurasidone 20mg tablet PO SCH (18:00)
--- NOTE | 2019-11-22 20:00 | NUR ---
The patient has been resting on her bed. She appears calm. She is friendly on approach. The patient's daughter was at the bedside. The patient's daughter reports that she has not been diagnoised with dementia but she and her aunt suspect she might be getting dementia and that over the pasat year she has been increasingly forgetful and is no longer able to accurately set up her medications. The patient stated she has been hearing voices telling her "to walk away" She also stated that she was depressed and wanted to .
[2019-11-22] MEDS: quetiapine 100mg tablet PO SCH (20:13)
[2019-11-22] MEDS ORDERED: OLANZapine 5mg rapidly disint. tablet PO SCH (21:00)
[2019-11-22] MEDS ORDERED: traZODone 50mg tablet PO SCH (21:00)
[2019-11-22] MEDS ORDERED: atorvastatin 10mg tablet PO SCH (21:00)
--- NOTE | 2019-11-22 21:52 | NUR ---
The patient appears to be sleeping at this time.
--- NOTE | 2019-11-23 00:59 | NUR ---
The patient appears to be sleeping
--- NOTE | 2019-11-23 03:37 | NUR ---
The patient appears to be sleeping
[2019-11-23 05:38] VITALS: BP 136/72
--- NOTE | 2019-11-23 05:42 | NUR ---
The patient was up to the restroom and appeared to be in good spirits
--- NOTE | 2019-11-23 06:54 | NUR ---
Patient sleeping supine. No distress observed. Continue to monitor.
--- NOTE | 2019-11-23 07:55 | NUR ---
Patient got up and ambulatory to BR, steady gait. No distress observed. Continue to monitor.
--- NOTE | 2019-11-23 08:25 | NUR ---
Patient eating breakfast. No distress observed. Continue to monitor.
[2019-11-23] MEDS: famotidine 20mg tablet PO SCH (08:33)
[2019-11-23] MEDS: venlafaxine XR 75mg capsule (Q24H) PO SCH (08:34)
[2019-11-23] MEDS: furosemide 20MG tablet PO SCH (08:35)
[2019-11-23] MEDS: levoTHYROXINE 25mcg tablet PO SCH (08:35)
[2019-11-23] MEDS: cetirizine 10mg tablet PO SCH (08:35)
[2019-11-23] MEDS: divalproex sod 250mg ER (24-hour) tablet PO SCH (08:35)
[2019-11-23] MEDS: potassium Cl 20 mEq SR tablet PO SCH (08:36)
[2019-11-23] MEDS: LORazepam 1 MG tablet PO SCH (08:36)
[2019-11-23] MEDS: tolterodine 2mg SR capsule (24hr) PO SCH (08:37)
--- NOTE | 2019-11-23 10:35 | NUR ---
RN spoke to sister who was upset that we can't keep her. "She wanders off! I've been trying to get help for a year and if something happens to her I will hold [facility]." RN explained to patient that she does not meet criteria for a hold. Sister tearful but said she would come and get her.
--- NOTE | 2019-11-23 11:50 | NUR ---
Glycerine Plant Operator signing with patient. Patient enjoyed the interaction. Patient still awaiting sister. Continue to monitor.
== END 2019-11-23 12:48 | disposition home or self-care (01) ==
LOC: ER 17:15
DX: F31.9 Bipolar disorder, unspecified (principal); F03.90 Unspecified dementia, unspecified severity, without behavioral disturbance, psychotic disturbance, mood disturbance, and anxiety; E78.00 Pure hypercholesterolemia, unspecified; K21.9 Gastro-esophageal reflux disease without esophagitis; F41.9 Anxiety disorder, unspecified; F20.9 Schizophrenia, unspecified; Z90.49 Acquired absence of other specified parts of digestive tract; Z90.710 Acquired absence of both cervix and uterus; Z98.890 Other specified postprocedural states; Z88.5 Allergy status to narcotic agent; Z79.899 Other long term (current) drug therapy
CPT/HCPCS: 36415; 71045; 74176; 80053; 80305; 80320; 81001; 83690; 84443; 84484; 85025; 87088; 93005; 99285; J7030

== ENCOUNTER 2019-12-07 18:18 | Emergency (ER) | payer MEDICARE, MEDICAID ==
[~2019-12-07] VITALS: Ht 162.6 cm; Wt 86.4 kg
[~2019-12-07 18:18] MED LIST changes: +DIVA500T9 PO; +LORA-269 PO; +OLAN5TAB5 PO
[2019-12-07] MEDS ORDERED: OLANZapine **IM** 10 mg inj. IM ONE (19:20)
[2019-12-07 21:28] VITALS: BP 108/74
--- NOTE | 2019-12-07 21:32 | NUR ---
I APPOLIGIZED TO DAUGHTER AND PT ABOUT THE DELAY IN GETTING THEM THE MEDS AND DISCHARGED. DAUGHTER VERY UNDERSTANDING. PT GIVEN ZYPREZXA 10 MG IM . VSS. DENIES ANY PAIN. DAUGHTER REPORTS PT USUALLY STAYS WITH HER SISTER (CAREGIVER), BUT THAT SHE WILL TAKE HER BACK TO HER OWN HOUSE TONIGHT. SHE WILL TAKE PT TO HER MENTAL HEALTH PRACTIONER IN THE AM. PT AMBULATING WITHSTEADY GAIT OUT OF ER.
== END 2019-12-07 21:35 | disposition home or self-care (01) ==
LOC: ER 18:19
DX: F29 Unspecified psychosis not due to a substance or known physiological condition (principal); E78.00 Pure hypercholesterolemia, unspecified; K21.9 Gastro-esophageal reflux disease without esophagitis; F41.9 Anxiety disorder, unspecified; F31.9 Bipolar disorder, unspecified; F20.9 Schizophrenia, unspecified; Z90.49 Acquired absence of other specified parts of digestive tract; Z90.710 Acquired absence of both cervix and uterus; Z98.890 Other specified postprocedural states; Z88.5 Allergy status to narcotic agent; Z79.2 Long term (current) use of antibiotics; Z79.899 Other long term (current) drug therapy
CPT/HCPCS: 96372; 99284; J3490